=== PATIENT | female | born 1970 | race Caucasian/White ===

== ENCOUNTER → 2017-04-29 | Outpatient (CLI) | payer BC ==
[2017-04-29 10:41] LABS: BILIRUBIN,URINE NEGATIVE (NEGATIVE); KETONES,URINE NEGATIVE (NEGATIVE); LEUKOCYTE ESTERASE ,URINE NEGATIVE (NEGATIVE); NITRITE,URINE NEGATIVE (NEGATIVE); PROTEIN,URINE DIPSTICK NEGATIVE (NEGATIVE); URINE UROBILINOGEN 0.2 mg/dL (0.2 - 1)
[2017-04-29 10:43] LABS: COLOR,URINE YELLOW (YELLOW)
[2017-04-29 10:44] LABS: CLARITY,URINE CLEAR (CLEAR)
[2017-04-29 11:10] LABS: % IRON SATURATION 16 % (15-50); ALANINE AMINOTRANSFERASE 19 IU/L (0-55); ALBUMIN 4.1 g/dL (3.5-5.0); ALBUMIN/GLOBULIN RATIO 1.2 (0.8-2.0); ALKALINE PHOSPHATASE 76 IU/L (40-150); ANION GAP 11.8 mmol/L (8-16); BLOOD UREA NITROGEN 13 mg/dL (7-26); BUN/CREATININE RATIO 16 (6-25); CALCIUM 9.5 mg/dL (8.4-10.2); CARBON DIOXIDE 27 mmol/L (22-29); CHLORIDE 104 mmol/L (98-107); CREATININE, SERUM 0.83 mg/dL (0.57-1.11); EST GLOMERULAR FILTRATION RATE > 60 ML/MIN (60-); GLUCOSE 98 mg/dL (74-118); IRON 64 ug/dL (50-170); LIPASE 27 U/L (8-78); POTASSIUM 4.8 mmol/L (3.5-5.1); SODIUM 138 mmol/L (136-145); TOTAL IRON BINDING CAPACITY 412 ug/dL (261-478); TRANSFERRIN 294 mg/dL (180-382)
[2017-04-29 13:00] LABS: FOLATE 37.1 ng/mL (7.0-15.4)
[2017-05-13 09:09] LABS: CHOL/HDL RATIO 3.9 (3.0-3.6); CHOLESTEROL 226 MD/DL (0-199); HDL CHOLESTEROL 58 MG/DL (40-60); LDL CHOLESTEROL 137 MG/DL (60-130); TRIGLYCERIDES 155 MG/DL (0-149)
== END ==
LOC: LAB 09:38
PROVIDERS: ATTEND Student in an Organized Health Care Education/Training Program
DX: Z13.29 Encounter for screening for other suspected endocrine disorder (principal); E78.2 Mixed hyperlipidemia; Z13.21 Encounter for screening for nutritional disorder; E79.0 Hyperuricemia without signs of inflammatory arthritis and tophaceous disease
CPT/HCPCS: 36415; 80053; 80061; 81003; 82607; 82652; 82746; 83021; 83540; 83690; 83921; 84443; 84466; 84550

== ENCOUNTER → 2017-05-11 | Outpatient (CLI) | payer BC | LOC: MAMMO 14:47 | PROVIDERS: ATTEND Student in an Organized Health Care Education/Training Program | DX: Z12.31 Encounter for screening mammogram for malignant neoplasm of breast (principal) | CPT/HCPCS: 77067 ==

== ENCOUNTER → 2017-06-01 | Outpatient (RCR) | payer BC | LOC: PT 05-25 13:04 | PROVIDERS: ATTEND Student in an Organized Health Care Education/Training Program | DX: M79.1 Myalgia (principal) ==

== ENCOUNTER → 2017-06-13 | Outpatient (CLI) | payer BC | END | disposition home or self-care (01) | LOC: RAD 09:48 | PROVIDERS: ATTEND Student in an Organized Health Care Education/Training Program | DX: R01.1 Cardiac murmur, unspecified (principal); I51.7 Cardiomegaly; I08.1 Rheumatic disorders of both mitral and tricuspid valves | CPT/HCPCS: 93306 ==

== ENCOUNTER 2017-07-01 07:00 | Outpatient (RCR) | payer BC | END 2017-07-02 | LOC: PT 07:00 | PROVIDERS: ATTEND Student in an Organized Health Care Education/Training Program | DX: M79.1 Myalgia (principal); R29.3 Abnormal posture; M62.81 Muscle weakness (generalized) | CPT/HCPCS: 97139 ==

== ENCOUNTER 2017-07-08 11:00 | Outpatient (RCR) | payer BC | END 2017-08-01 | LOC: PT 11:00 | PROVIDERS: ATTEND Student in an Organized Health Care Education/Training Program | DX: M79.1 Myalgia (principal); R29.3 Abnormal posture; M62.81 Muscle weakness (generalized) ==

== ENCOUNTER 2017-07-08 13:36 | Emergency (ER) | payer BC ==
[~2017-07-08] VITALS: Ht 165.1 cm; Wt 78.0 kg
== END 2017-07-08 15:41 | disposition home or self-care (01) ==
LOC: FSED 13:36
DX: S90.32XA Contusion of left foot, initial encounter (principal); W22.8XXA Striking against or struck by other objects, initial encounter; R03.0 Elevated blood-pressure reading, without diagnosis of hypertension
CPT/HCPCS: 99283

== ENCOUNTER → 2017-09-23 | Outpatient (CLI) | payer BC ==
[2017-09-23 10:12] LABS: ALANINE AMINOTRANSFERASE 18 IU/L (0-55); ALBUMIN 3.8 g/dL (3.5-5.0); ALBUMIN/GLOBULIN RATIO 1.2 (0.8-2.0); ALKALINE PHOSPHATASE 70 IU/L (40-150); ANION GAP 12.3 mmol/L (8-16); BLOOD UREA NITROGEN 13 mg/dL (7-26); BUN/CREATININE RATIO 15 (6-25); CALCIUM 9.4 mg/dL (8.4-10.2); CARBON DIOXIDE 26 mmol/L (22-29); CHLORIDE 102 mmol/L (98-107); CHOL/HDL RATIO 4.3 (3.0-3.6); CHOLESTEROL 245 MD/DL (0-199); CREATININE, SERUM 0.84 mg/dL (0.57-1.11); EST GLOMERULAR FILTRATION RATE > 60 ML/MIN (60-); GLUCOSE 99 mg/dL (74-118); HDL CHOLESTEROL 57 MG/DL (40-60); IRON 70 ug/dL (50-170); LDL CHOLESTEROL 158 MG/DL (60-130); POTASSIUM 4.3 mmol/L (3.5-5.1); SODIUM 136 mmol/L (136-145); TRIGLYCERIDES 152 MG/DL (0-149)
== END ==
LOC: LAB 09:24
PROVIDERS: ATTEND Student in an Organized Health Care Education/Training Program
DX: E78.2 Mixed hyperlipidemia (principal); D64.9 Anemia, unspecified
CPT/HCPCS: 36415; 80053; 80061; 83540

== ENCOUNTER → 2018-03-31 | Outpatient (CLI) | payer BC | LOC: LAB 09:35 | PROVIDERS: ATTEND Internal Medicine | DX: M25.541 Pain in joints of right hand (principal) | CPT/HCPCS: 36415; 82550; 82784; 84550; 85651; 86039; 86200; 86431 ==

== ENCOUNTER → 2018-07-03 | Day surgery (SDC) | payer BC ==
[~2018-07-03] MED LIST: ATORVASTATIN CA10 MG PO; BUPIVACAINE HCL 0.5% INJ 30 ML VIAL INJ ONE; FENOFIBRATE145 MG PO; LIDOCAINE 1% W/EPINEPHRINE 20 ML VIAL ONE; LIDOCAINE HCL 1% 30ML-PF VIAL ONE; MELATONIN3 MG PO; MELOXICAM7.5 MG PO; METHYLPREDNISOLONE ACETATE 80 MG/ML VIAL ONE; MULTIVITAMINS1 EAC7 PO; TRINTELLIX PO; VITAMIN D400 UNIT PO
--- OUTSIDE RECORDS SUMMARY | 2018-07-03 12:12 | XMS REPORT ---
Author Author [facility] Address Unknown Phone Unavailable Care Team Providers Care Cleaner Assistant Name Role Phone Torrey AGARWAL Unavailable Unavailable Problems This patient has no known problems. Allergies, Adverse Reactions, Alerts This patient has no known allergies or adverse reactions. Medications This patient has no known medications. Results Test Description Test Time Test Comments Text Results Atomic Results Result Comments MAMMOGRAPHY DIGITAL SCR BILAT [place] [address] Patient Name: HALLE COOMBS MR #: [id number] : 1970 Age/Sex: 46/F Req #: [id number] [facility] Physician: Ordered by: ROSINA AGARWAL M.D. Report #: [id number] Location: MAMMO Room/Bed: Procedure: [id number] MG/MAMMOGRAPHY DIGITAL SCR BILAT Exam Date: 05/11/17 Exam Time: 1450 REPORT STATUS: Signed #[id number] - [id number] #BILATERAL DIGITAL SCREENING MAMMOGRAM WITH CAD: 05/11/2017 CLINICAL: Routine screening. Comparison is made to exam dated: 12/18/2015 mammogram - [facility]. Current study contains 4 films. The tissue of both breasts is heterogeneously dense. This may lower the sensitivity of mammography. Current study was also evaluated with a Computer Aided Detection (CAD) system. No significant masses, calcifications, or other findings are seen in either breast. There has been no significant interval change. IMPRESSION: NEGATIVE There is no mammographic evidence of malignancy. A 1 year screening mammogram is recommended. The patient will be notified by letter of the results. Rashmi reese/allison:05/19/2017 12:29:11 Senior Fire Protection Engineer: Zoë OLIVERA)([place]), [facility] letter sent: Compared to Prior B9 Mammogram BI- RADS: 1 Negative Dictated By: RASHMI JONES DO 1229 Transcribed By: ALLISON on 05/19/17 1229 COPY TO: ROSINA AGARWAL M.D.
--- OUTSIDE RECORDS SUMMARY | 2018-07-03 12:12 | XMS REPORT | Clinical Summary ---
Author Author [facility] Address Unknown Phone Unavailable Care Team Providers Care Numerical Control Drill Press Operator Name Role Phone Annie Plascencia MD PCP Allergies Comments Active Allergy Reactions Severity Noted Date Rash Coenzyme Q10 01/16/2018 Medications End Date Status Medication Sig Dispensed Refills Start Date Active multivitamin with Take 1 tablet 0 minerals tablet by mouth daily. Active CHOLECALCIFEROL, VITAMIN Take 2 0 D3, (VITAMIN D3 ORAL) tablets by mouth daily. Active MELATONIN ORAL Take 1 tablet 0 by mouth daily. Active FERROUS SULFATE, DRIED Take by 0 (IRON, DRIED, ORAL) mouth. 10/13/2018 Active atorvastatin (LIPITOR) 10 Take 1 tablet 30 tablet 11 MG tabletIndications: (10 mg total) 8 Mixed hyperlipidemia by mouth daily. Active TRINTELLIX 10 mg TAKE 1 TABLET 90 tablet 3 tabletIndications: BY MOUTH 8 Anxiety and depression EVERY DAY Active betamethasone valerate Apply 30 g 3 (VALISONE) 0.1 % topically 2 8 creamIndications: Lichen (two) times a sclerosus et atrophicus day. Apply topically from every other day to up to two times a day as needed. Active valACYclovir (VALTREX) TAKE 1 TABLET 60 tablet 1 500 MG tabletIndications: (500 MG 9 Genital herpes simplex, TOTAL) BY unspecified site MOUTH 2 (TWO) TIMES A DAY. Active loratadine (CLARITIN) 10 Take 10 mg by 0 mg tablet mouth daily. Active triamcinolone (KENALOG) Apply 0 0.1 % ointment topically 2 (two) times a day. 05/30/2019 Active meloxicam (MOBIC) 7.5 mg Take 1 tablet 30 tablet 11 tabletIndications: (7.5 mg 9 Polyarthralgia total) by mouth daily. 05/30/2019 Active fenofibrate (TRICOR) 48 Take 1 tablet 30 tablet 11 MG tabletIndications: (48 mg total) 9 Mixed hyperlipidemia by mouth daily. 09/20/2017 Discontinued doxycycline (MONODOX) 100 Take 50 mg by 0 MG capsule mouth daily. 08/01/2017 Discontinued busPIRone (BUSPAR) 7.5 MG TAKE 1 TABLET 60 tablet 1 tabletIndications: (7.5 MG 7 Anxiety TOTAL) BY MOUTH 2 (TWO) TIMES A DAY. 01/16/2018 Discontinued betamethasone valerate Apply 30 g 3 (VALISONE) 0.1 % topically 2 7 creamIndications: Lichen (two) times a sclerosus et atrophicus day. Apply topically from every other day to up to two times a day as needed. 07/27/2017 Discontinued valACYclovir (VALTREX) TAKE 1 TABLET 60 tablet 1 500 MG tabletIndications: (500 MG 8 Genital herpes simplex, TOTAL) BY unspecified site MOUTH 2 (TWO) TIMES A DAY. 08/01/2017 Discontinued vortioxetine 10 mg Take 10 mg by 30 tablet 3 tabletIndications: mouth daily. 8 Anxiety and depression 08/01/2017 Discontinued escitalopram (LEXAPRO) 20 TAKE 1 TABLET 90 tablet 3 MG tablet BY MOUTH 8 EVERY MORNING. 01/16/2018 Discontinued ezetimibe (ZETIA) 10 mg Take 1 tablet 90 tablet 3 tabletIndications: Mixed (10 mg total) 8 hyperlipidemia by mouth daily. 10/03/2017 Discontinued valACYclovir (VALTREX) TAKE 1 TABLET 60 tablet 1 500 MG tabletIndications: (500 MG 8 Genital herpes simplex, TOTAL) BY unspecified site MOUTH 2 (TWO) TIMES A DAY. 09/20/2017 Discontinued busPIRone (BUSPAR) 7.5 MG TAKE 1 TABLET 60 tablet 1 tabletIndications: (7.5 MG 8 Anxiety TOTAL) BY MOUTH 2 (TWO) TIMES A DAY. 12/02/2017 Discontinued vortioxetine 10 mg Take 10 mg by 90 tablet 0 tabletIndications: mouth daily. 8 Anxiety and depression 12/06/2017 Discontinued valACYclovir (VALTREX) TAKE 1 TABLET 60 tablet 1 500 MG tabletIndications: (500 MG 8 Genital herpes simplex, TOTAL) BY unspecified site MOUTH 2 (TWO) TIMES A DAY. 01/08/2018 lisdexamfetamine Take 1 90 capsule 0 (VYVANSE) 30 MG capsule (30 8 capsuleIndications: Adult mg total) by ADHD mouth every morning for 90 days. Max Daily Amount: 30 mg 01/16/2018 Discontinued coenzyme Q10 (COQ-10) 100 Take 1 30 capsule 11 mg capsuleIndications: capsule (100 8 Mixed hyperlipidemia mg total) by mouth daily. 01/16/2018 Discontinued predniSONE (DELTASONE) 20 TAKE 1 TABLET 0 10/25/201 mg tablet BY MOUTH FOR 8 5 DAYS 11/26/2017 Discontinued hydrOXYzine (ATARAX) 25 Take 1 tablet 30 tablet 0 10/28/201 MG tabletIndications: (25 mg total) 8 Rash and nonspecific skin by mouth 3 eruption (three) times a day as needed for itching for up to 30 days. 12/27/2017 hydrOXYzine (ATARAX) 25 TAKE 1 TABLET 30 tablet 0 201 MG tabletIndications: (25 MG TOTAL) 8 Rash and nonspecific skin BY MOUTH 3 eruption (THREE) TIMES A DAY NEEDED FOR ITCHING FOR UP TO 30 DAYS. 12/06/2017 Discontinued valACYclovir (VALTREX) TAKE 1 TABLET 60 tablet 1 500 MG tabletIndications: (500 MG 8 Genital herpes simplex, TOTAL) BY unspecified site MOUTH 2 (TWO) TIMES A DAY. 05/23/2018 Discontinued valACYclovir (VALTREX) TAKE 1 TABLET 60 tablet 1 500 MG tabletIndications: (500 MG 8 Genital herpes simplex, TOTAL) BY unspecified site MOUTH 2 (TWO) TIMES A DAY. 05/23/2018 Discontinued dextroamphetamine-ampheta Take 1 tablet 30 tablet 0 mine (ADDERALL) 10 mg (10 mg total) 8 tabletIndications: ADHD, by mouth adult residual type daily for 30 days. Max Daily Amount: 10 mg 05/23/2018 Discontinued valACYclovir (VALTREX) TAKE 1 TABLET 60 tablet 1 500 MG tabletIndications: (500 MG 8 Genital herpes simplex, TOTAL) BY unspecified site MOUTH 2 (TWO) TIMES A DAY. 04/05/2018 dextroamphetamine-ampheta Take 1 tablet 30 tablet 0 mine (ADDERALL) 10 mg (10 mg total) 8 tabletIndications: Adult by mouth ADHD daily for 30 days. Max Daily Amount: 10 mg 06/22/2018 dextroamphetamine-ampheta Take 1 tablet 30 tablet 0 mine (ADDERALL) 10 mg (10 mg total) 9 tabletIndications: ADHD, by mouth adult residual type daily for 30 days. Max Daily Amount: 10 mg Active Problems Problem Noted Date Lichen sclerosus et atrophicus 01/16/2018 Arthralgia of right hand 05/05/2017 Anxiety and depression 05/05/2017 Myalgia 05/05/2017 Hip sprain 03/10/2016 Hand sprain 03/10/2016 Rosacea 03/03/2016 Insomnia Mixed hyperlipidemia Genital herpes Depression Encounters Care Team Description Date Type Specialty Annie Plascencia MD Polyarthralgia (Primary Dx); Mixed hyperlipidemia; Adult ADHD; History of psoriasis 05/30/2018 Office Visit Family Medicine Annie Plascencia MD Adult ADHD (Primary Dx) 03/06/2018 Orders Only Family Medicine Annie Plascencia MD Genital herpes simplex, unspecified site; ADHD, adult residual type 02/01/2018 Refill Family Medicine Annie Plascencia MD Mixed hyperlipidemia (Primary Dx); Lichen sclerosus et atrophicus; Anxiety and depression; ADHD, adult residual type; Long-term use of high-risk medication 01/16/2018 Office Visit Family Annie Porras MD Genital herpes simplex, unspecified site 12/06/2017 Orders Only Family Annie Porras MD Genital herpes simplex, unspecified site 12/06/2017 Refill Family Medicine Annie Plascencia MD Anxiety and depression 12/02/2017 Refill Internal Medicine Annie Plascencia MD Rash and nonspecific skin eruption 11/26/2017 Refill Family Medicine Annie Plascencia MD Rash and nonspecific skin eruption (Primary Dx) 10/28/2017 Office Visit Family Medicine Monserrat Chappell MA 10/24/2017 Orders Only Family Medicine Annie Plascencia MD Mixed hyperlipidemia (Primary Dx) 10/13/2017 Orders Only Family Medicine Annie Plascencia MD Adult ADHD (Primary Dx) 10/10/2017 Orders Only Family Medicine Annie Plascencia MD 10/06/2017 Telephone Family Medicine Annie Plascencia MD Genital herpes simplex, unspecified site 10/03/2017 Refill Family Medicine Annie Plascencia MD Mixed hyperlipidemia (Primary Dx); Anemia, unspecified type; ADHD, adult residual type; Anxiety and depression 09/20/2017 Office Visit Family Medicine Belem Ohara MA Anxiety; Anxiety and depression 08/01/2017 Refill Internal Medicine Annie Plascencia MD Genital herpes simplex, unspecified site 07/27/2017 Refill Family Medicine after 07/02/2017 Family History Medical History Relation Name Comments Arthritis Father Hypertension Father Heart failure Maternal Grandmother Pancreatic cancer Maternal Grandmother Hyperlipidemia Mother Hypertension Mother Colon cancer Paternal Grandfather Relation Name Status Comments Father Alive Maternal Grandmother Mother Alive Paternal Grandfather Social History Date Tobacco Use Types Packs/Day Years Used Former Smoker 0.5 3 Smokeless Tobacco: Never Used Tobacco Cessation: Counseling Given: Yes Comments: quit 1993 Alcohol Use Drinks/Week oz/Week Comments Yes 1-2 Glasses 0.6 - 1.2 of wine Sex Assigned at Date Recorded Not on file Industry Job Start Date Occupation Not on file Not on file Not on file Travel End Travel History Travel Start No recent travel history available. Last Filed Vital Signs Time Taken Vital Sign Reading 05/30/2018 3:18 PM QUALITY ASSURANCE LEAD Blood Pressure 121/80 05/30/2018 3:18 PM QUALITY ASSURANCE LEAD Pulse 68 05/30/2018 3:18 PM QUALITY ASSURANCE LEAD Temperature 36.8 C (98.2 F) 05/30/2018 3:18 PM QUALITY ASSURANCE LEAD Respiratory Rate 18 05/30/2018 3:18 PM QUALITY ASSURANCE LEAD Oxygen Saturation 99% - Inhaled Oxygen - Concentration 05/30/2018 3:18 PM QUALITY ASSURANCE LEAD Weight 83.9 kg (185 lb) 05/30/2018 3:18 PM QUALITY ASSURANCE LEAD Height 163.8 cm (5' 4.5") 05/30/2018 3:18 PM QUALITY ASSURANCE LEAD Body Mass Index 31.26 Plan of Treatment Care Team Description Date [place] [address] [place], [place] [id number] 09/06/2018 Office Visit Family Medicine Health Maintenance Due Date Last Done Comments INFLUENZA VACCINE 11/02/2018 01/03/2018, 01/03/2017 CERVICAL CANCER SCREENING 05/05/2049 Postponed from 1990 (Not Indicated) Implants Device Identifier Shelf Expiration Date Model / Serial / Lot Implanted Type Area Manufactur er TVTRL / / System Contnc Rtrpbc Gynecare Tvt Urological N/A: N/A GYNECARE Exact - [id number] Implants Implanted: Qty: 1 on 07/27/2016 by or Sets Sergo Espinosa MD Results Not on fileafter 07/02/2017 Insurance Payer Benefit Subscriber ID Type Phone Address Plan / Group BCBS BCBS xxxxxxxxxxxx PPO CHOICE PPO/KARLIE L EMPL PPO (Work) [id number] Advance Directives Patient has advance care planning documents on file. For more information, erasto cornelius contact: Kevin Baptiste [address] [place] [address]
[2018-07-03 14:28] VITALS: BP 150/79
--- NOTE | 2018-07-03 14:52 | NUR ---
Operative Procedure Note Procedure: Right & Left hip corticosteroid Injection with image guidance Pre-Op Dx: Right & Left hip femoroacetabular impingement and labral tear Post-Op Dx: Right & Left hip femoroacetabular impingement and labral tear Anesthetic Type: None Surgeon: Naomy David DO Clinical History: 47year old female with right & left hip due to femoroacetabular impingement and labral tear that has failed physical therapy Procedure Summary: Patient was placed in supine position. A time out was performed and Bilateral hips was prepped and draped. Under sterile conditions a needle was placed intra-articularly with the use of ultrasound. Location of t he needle was confirmed with flouroscopy. (40 mg of Depomedrol with 5 cc of 0.5% Marcaine was injected into the hip. As the needle was withdrawn, 5 cc of 1% lidocaine was injected infiltrating the local tissue. A bandaid was placed over the site. The patient was transferred to recovery under stable condition. Findings: Right & Left hip femoroacetabular impingement and labral tear Specimen: None Complications: No EBL: 0 mL Post-Op Condition: Stable Post-Op Plan: Discharge Home WBAT with follow up in 2 weeks Post-Op Plan: Discharge Home WBAT with follow up in 2 weeks
--- NOTE | 2018-07-03 14:55 | NUR ---
DISCHARGE SUMMARY PRIMARY DIAGNOSIS: Bilateral FELA & Labral Tear PROCEDURE PERFORMED: Bilateral Corticosteroid Injection under Image guidance HOSPITAL COURSE: 47 yo F presented to hospital for bilateral FELA and labral tear. Underwent outpatient procedure without complication. INSTRUCTIONS ON DISCHARGE: Weight bearing status: WBAT DVT Prophylaxis: Frequent ambulation Analgesics: OTC NSAIDS Dressing Management: May removed bandaid tonight Follow up in the office in 2 weeks. MEDICATIONS ON DISCHARGE: No new medications Naomy David DO [facility] [address] [place] [phone]
== END | disposition home or self-care (01) ==
LOC: OR 12:09
PROVIDERS: ATTEND Orthopaedic Surgery
DX: M25.852 Other specified joint disorders, left hip (principal); M25.851 Other specified joint disorders, right hip; S73.101A Unspecified sprain of right hip, initial encounter; S73.102A Unspecified sprain of left hip, initial encounter; E78.5 Hyperlipidemia, unspecified; F41.9 Anxiety disorder, unspecified; F32.9 Major depressive disorder, single episode, unspecified; X58.XXXA Exposure to other specified factors, initial encounter
CPT/HCPCS: 20610; J1040; J2001; 76000

== ENCOUNTER 2018-07-17 09:23 | Emergency (ER) | payer BC ==
[~2018-07-17] VITALS: Ht 165.1 cm; Wt 78.0 kg
[~2018-07-17 09:23] MED LIST changes: -BUPIVACAINE HCL 0.5% INJ 30 ML VIAL INJ ONE; -LIDOCAINE 1% W/EPINEPHRINE 20 ML VIAL ONE; -LIDOCAINE HCL 1% 30ML-PF VIAL ONE; -METHYLPREDNISOLONE ACETATE 80 MG/ML VIAL ONE
--- OUTSIDE RECORDS SUMMARY | 2018-07-17 09:26 | XMS REPORT | Clinical Summary ---
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 Name Role Phone Annie Plascencia MD PCP [...] unspecified site 07/27/2017 Refill Family Medicine after 07/16/2017 Family History Medical History Relation Name Comments [...] Taken Vital Sign Reading 05/30/2018 3:18 PM TRADE SHOW SPECIALIST Blood Pressure 121/80 05/30/2018 3:18 PM TRADE SHOW SPECIALIST Pulse 68 05/30/2018 3:18 PM TRADE SHOW SPECIALIST Temperature 36.8 C (98.2 F) 05/30/2018 3:18 PM TRADE SHOW SPECIALIST Respiratory Rate 18 05/30/2018 3:18 PM TRADE SHOW SPECIALIST Oxygen Saturation 99% - Inhaled Oxygen - Concentration 05/30/2018 3:18 PM TRADE SHOW SPECIALIST Weight 83.9 kg (185 lb) 05/30/2018 3:18 PM TRADE SHOW SPECIALIST Height 163.8 cm (5' 4.5") 05/30/2018 3:18 PM TRADE SHOW SPECIALIST Body Mass Index 31.26 Plan of Treatment Care Team Description Date [place] [address] [place], [place] [phone] 09/06/2018 Office Visit Family Medicine Health Maintenance Due Date Last Done Comments INFLUENZA VACCINE 11/02/2018 01/03/2018, 01/03/2017 CERVICAL CANCER SCREENING 05/05/2049 Postponed from 1990 (Not Indicated) Implants Device Identifier Shelf Expiration Date Model / Serial / Lot Implanted Type Area Manufactur er TVTRL / / System Contnc Rtrpbc Gynecare Tvt Urological N/A: N/A GYNECARE Exact - [id number] Implants Implanted: Qty: 1 on 07/27/2016 by or Sets Sergo Espinosa MD Results Not on fileafter 07/16/2017 Insurance Payer Benefit Subscriber ID Type Phone Address Plan / Group BCBS BCBS xxxxxxxxxxxx PPO CHOICE PPO/KARLIE L EMPL PPO (Work) [phone] Advance Directives Patient has advance care planning documents on file. For more information, erasto cornelius contact: Kevin Baptiste [address] [place] [address]
[2018-07-17] MEDS ORDERED: LIDOCAINE HCL 1% LOCAL INJ 20 ML VIAL INJ ONE (11:15)
[2018-07-17] MEDS ORDERED: POVIDONE IODINE 10% 120 ML BTL EXT ONE (11:15)
[2018-07-17] MEDS ORDERED: BACITRACIN ZINC 0.9GM TP ONE (11:15)
[2018-07-17] MEDS ORDERED: SODIUM CHLORIDE 0.9% IRRIG 3,000 ML BAG IR ONE (11:15)
== END 2018-07-17 10:35 | disposition home or self-care (01) ==
LOC: FSED 09:23
DX: S61.011A Laceration without foreign body of right thumb without damage to nail, initial encounter (principal); S61.210A Laceration without foreign body of right index finger without damage to nail, initial encounter; W26.0XXA Contact with knife, initial encounter; Y92.008 Other place in unspecified non-institutional (private) residence as the place of occurrence of the external cause
CPT/HCPCS: 12001; 99284; J2001

== ENCOUNTER 2018-07-26 14:14 | Emergency (ER) | payer BC ==
[~2018-07-26] VITALS: Ht 165.1 cm; Wt 81.6 kg
--- OUTSIDE RECORDS SUMMARY | 2018-07-26 14:17 | XMS REPORT | Clinical Summary ---
Author Author [facility] Address Unknown Phone Unavailable Care Team Providers Care Plate Colorer Name Role Phone Annie Plascencia MD PCP [...] Take by 0 (IRON, DRIED, ORAL) mouth. Active TRINTELLIX 10 mg TAKE 1 TABLET [...] total) 9 Mixed hyperlipidemia by mouth daily. Active atorvastatin (LIPITOR) 10 TAKE 1 TABLET 30 tablet 1 MG tabletIndications: BY MOUTH 9 Mixed hyperlipidemia EVERY DAY 09/20/2017 Discontinued doxycycline (MONODOX) 100 Take 50 [...] 90 days. Max Daily Amount: 30 mg 07/20/2018 Discontinued atorvastatin (LIPITOR) 10 Take 1 tablet 30 tablet 11 MG tabletIndications: (10 mg total) 8 Mixed hyperlipidemia by mouth daily. 01/16/2018 Discontinued coenzyme Q10 (COQ-10) 100 Take [...] 25 TAKE 1 TABLET 30 tablet 0 11/27/201 MG tabletIndications: (25 MG TOTAL) 8 Rash [...] Description Date Type Specialty Annie Plascencia MD Mixed hyperlipidemia 07/20/2018 Refill Family Annie Porras MD Polyarthralgia (Primary Dx); Mixed hyperlipidemia; Adult ADHD; History of psoriasis 05/30/2018 Office Visit Family Annie Porras MD Adult ADHD (Primary Dx) 03/06/2018 Orders Only Family Annie Porras MD Genital herpes simplex, unspecified site; ADHD, adult residual type 02/01/2018 Refill Annie Dean MD Mixed hyperlipidemia (Primary Dx); Lichen sclerosus et atrophicus; Anxiety and depression; ADHD, adult residual type; Long-term use of high-risk medication 01/16/2018 Office Visit Annie Dean MD Genital herpes simplex, unspecified site 12/06/2017 [...] unspecified site 07/27/2017 Refill Family Medicine after 07/25/2017 Family History Medical History Relation Name Comments [...] Taken Vital Sign Reading 05/30/2018 3:18 PM REFINISHER Blood Pressure 121/80 05/30/2018 3:18 PM REFINISHER Pulse 68 05/30/2018 3:18 PM REFINISHER Temperature 36.8 C (98.2 F) 05/30/2018 3:18 PM REFINISHER Respiratory Rate 18 05/30/2018 3:18 PM REFINISHER Oxygen Saturation 99% - Inhaled Oxygen - Concentration 05/30/2018 3:18 PM REFINISHER Weight 83.9 kg (185 lb) 05/30/2018 3:18 PM REFINISHER Height 163.8 cm (5' 4.5") 05/30/2018 3:18 PM REFINISHER Body Mass Index 31.26 Plan of Treatment Care Team Description Date [place] [address] [place], [place] [phone] 09/06/2018 Office Visit Family Medicine Health Maintenance Due Date Last Done Comments INFLUENZA VACCINE 11/02/2018 01/03/2018, 01/03/2017 CERVICAL CANCER SCREENING 05/05/2049 Postponed from 1990 (Not Indicated) Implants Device Identifier Shelf Expiration Date Model / Serial / Lot Implanted Type Area Manufactur er TVTRL / / System Contnc Rtrpbc Gynecare Tvt Urological N/A: N/A GYNECARE Exact - [id number] Implants Implanted: Qty: 1 on 07/27/2016 by or Sergo Manuel MD Results Not on fileafter 07/25/2017 Insurance Payer Benefit Subscriber ID Type Phone Address Plan / Group BCBS BCBS xxxxxxxxxxxx PPO CHOICE PPO/KARLIE BOWEN PPO (Work) [id number] Advance Directives Patient has advance care planning documents on file. For more information, erasto cornelius contact: Kevin Baptiste [address] [place] [address]
== END 2018-07-26 14:43 | disposition home or self-care (01) ==
LOC: FSED 14:14
DX: Z48.02 Encounter for removal of sutures (principal)
CPT/HCPCS: 99282

== ENCOUNTER 2018-07-31 13:00 | Outpatient (RCR) | payer BC | END 2018-08-01 | LOC: PT 13:00 | PROVIDERS: ATTEND Orthopaedic Surgery | DX: S73.192D Other sprain of left hip, subsequent encounter (principal); S73.191D Other sprain of right hip, subsequent encounter; M62.81 Muscle weakness (generalized); M25.652 Stiffness of left hip, not elsewhere classified; M25.651 Stiffness of right hip, not elsewhere classified ==

== ENCOUNTER 2018-08-25 11:00 | Outpatient (RCR) | payer BC | END 2018-09-01 | LOC: PT 11:00 | PROVIDERS: ATTEND Orthopaedic Surgery | DX: S73.192A Other sprain of left hip, initial encounter (principal); S73.191A Other sprain of right hip, initial encounter | CPT/HCPCS: 97139 ==

== ENCOUNTER → 2018-09-12 | Outpatient (CLI) | payer BC ==
[2018-09-12 09:42] LABS: BASOPHILS % 0.6 % (0.0-1.0); EOSINOPHILS # (AUTO) 0.1 (0.0-0.4); EOSINOPHILS % 1.1 % (0.0-6.0); HEMATOCRIT 36.9 % (34.2-44.1); HEMOGLOBIN 12.5 g/dL (12.0-16.0); LYMPHOCYTES # (AUTO) 2.1 (1.0-3.2); LYMPHOCYTES % 38.4 % (18.0-39.1); MEAN CORPUSCULAR HEMOGLOBIN 32.1 pg (28-32); MEAN CORPUSCULAR HGB CONC 33.9 g/dL (31-35); MEAN CORPUSCULAR VOLUME 94.6 fL (81-99); MONOCYTES # (AUTO) 0.4 (0.2-0.8); MONOCYTES % 8.2 % (4.4-11.3); NEUTROPHILS # (AUTO) 2.8 (2.1-6.9); NEUTROPHILS % 51.5 % (38.7-80.0); PLATELET COUNT 324 x10e3/uL (140-360); RED CELL DISTRIBUTION WIDTH 12.6 % (11.7-14.4)
[2018-09-12 10:00] LABS: % IRON SATURATION 20 % (15-50); ALANINE AMINOTRANSFERASE 44 IU/L (0-55); ALBUMIN/GLOBULIN RATIO 1.4 (0.8-2.0); ALKALINE PHOSPHATASE 74 IU/L (40-150); ANION GAP 10.1 mmol/L (8-16); BLOOD UREA NITROGEN 16 mg/dL (7-26); BUN/CREATININE RATIO 18 (6-25); CALCIUM 9.4 mg/dL (8.4-10.2); CARBON DIOXIDE 26 mmol/L (22-29); CHLORIDE 103 mmol/L (98-107); CHOL/HDL RATIO 3.8 (3.0-3.6); CHOLESTEROL 214 MD/DL (0-199); CREATININE, SERUM 0.88 mg/dL (0.57-1.11); EST GLOMERULAR FILTRATION RATE > 60 ML/MIN (60-); GLUCOSE 90 mg/dL (74-118); HDL CHOLESTEROL 57 MG/DL (40-60); IRON 70 ug/dL (50-170); LDL CHOLESTEROL 132 MG/DL (60-130); POTASSIUM 4.1 mmol/L (3.5-5.1); SODIUM 135 mmol/L (136-145); TOTAL IRON BINDING CAPACITY 356 ug/dL (261-478); TRANSFERRIN 254 mg/dL (180-382); TRIGLYCERIDES 126 MG/DL (0-149)
[2018-09-12 10:19] LABS: THYROID STIMULATING HORMONE 1.482 uIU/mL (0.350-4.940)
[2018-09-12 13:09] LABS: ERYTHROCYTE SEDIMENTATION RATE 11 mm/hr (0-20)
== END ==
LOC: LAB 09:02
PROVIDERS: ATTEND Student in an Organized Health Care Education/Training Program
DX: Z13.29 Encounter for screening for other suspected endocrine disorder (principal); E78.2 Mixed hyperlipidemia; M79.10 Myalgia, unspecified site; E79.0 Hyperuricemia without signs of inflammatory arthritis and tophaceous disease; E61.1 Iron deficiency
CPT/HCPCS: 36415; 77067; 80053; 80061; 83036; 83540; 84443; 84466; 84550; 85025; 85651; 86039; 86140; 86431

== ENCOUNTER 2018-09-13 13:00 | Outpatient (RCR) | payer BC | END 2018-10-01 | LOC: PT 13:00 | PROVIDERS: ATTEND Orthopaedic Surgery | DX: S73.192D Other sprain of left hip, subsequent encounter (principal); S73.191D Other sprain of right hip, subsequent encounter; M62.81 Muscle weakness (generalized); M25.652 Stiffness of left hip, not elsewhere classified; M25.651 Stiffness of right hip, not elsewhere classified ==

== ENCOUNTER → 2018-09-15 | Outpatient (CLI) | payer BC ==
[~2018-09-15] MED LIST changes: +GADOBENATE DIMEGLUMINE 1 ML IV ONE; +IOPAMIDOL 300 MG/ML 15ML VIAL IT ONE; +LIDOCAINE HCL 1% LOCAL INJ 20 ML VIAL ONE
== END ==
LOC: DX 11:16
PROVIDERS: ATTEND Orthopaedic Surgery
DX: M84.459A Pathological fracture, hip, unspecified, initial encounter for fracture (principal)
CPT/HCPCS: 27093; A9577; J2001; Q9967

== ENCOUNTER → 2019-09-14 | Outpatient (CLI) | payer OTHER ==
[~2019-09-14] MED LIST changes: -GADOBENATE DIMEGLUMINE 1 ML IV ONE; -IOPAMIDOL 300 MG/ML 15ML VIAL IT ONE; -LIDOCAINE HCL 1% LOCAL INJ 20 ML VIAL ONE
== END ==
LOC: MAMMO 13:32
PROVIDERS: ATTEND Student in an Organized Health Care Education/Training Program
DX: Z12.31 Encounter for screening mammogram for malignant neoplasm of breast (principal)
CPT/HCPCS: 77067

== ENCOUNTER → 2020-01-03 | Outpatient (CLI) | payer OTHER ==
[~2020-01-03] MED LIST changes: +IOPAMIDOL 370 MG/ML 200 ML INFUS..BTL INJ ONE; +METOPROLOL TARTRATE INJ 1 MG/ML VIAL ONE; +NITROGLYCERIN 0.4 MG SUBL ONE; +SODIUM CHLORIDE 0.9% 100 ML ONE
--- NOTE | 2020-01-04 13:45 | NUR ---
Follow up call made to pt reguarding CTA that was performed yesterday. Pt states she had a headache all day yesterday, she took tylenol for it. st stated When she woke up today she feels like her normal self
--- NOTE | 2020-01-05 09:55 | Diagnostic Imaging Report ---
EXAM: CALCIUM SCORE AND CORONARY CTA INDICATION: ^[id number] ^[id number] ^CHEST PAIN COMPARISON: None. TECHNIQUE: Multi-detector CT technology was employed (64 MDCT [place]). Minimal slice thickness with retrospective gating was performed following the intravenous administration of contrast material. The patient was premedicated with 2.5 mg i.v. metoprolol and 0.4 mg sublingual nitroglycerin for heart rate control and coronary dilation, respectively. IV CONTRAST: 100 mL of Isovue-370 ORAL CONTRAST: None COMPLICATIONS: None RADIATION DOSE: Total DLP: 1451.2 mGy*cm Estimated effective dose: (DLP x 0.015 x size factor) mSv CTDIvol has been reviewed. It is below the limits set by the Radiation Protocol Committee (RPC). For optimization of anatomic evaluation, multiplanar reconstruction, maximum intensity projections, and advanced 3-D off-line postprocessing were performed on a dedicated stand-alone workstation under the direct supervision of the interpreting physician. QUALITY: Excellent FINDINGS: CALCIUM SCORE: The observed Agatston Calcium Score of 0 is at percentile 50% for subjects of the same age and gender who are free of clinical cardiovascular disease and treated diabetes. The Agatston score for each vessel is as follows: LM: 0 LAD: 0 LCx: 0 RCA: 0 DISTRIBUTION OF THE CALCIFIED PLAQUES: No identifiable calcified plaques in the coronary arteries. CORONARY ANATOMY: There is normal origin of the coronary arteries. Left Main Coronary Artery: The left main is normal sized vessel that bifurcates into the LAD and circumflex. There is no evidence of atherosclerotic changes or stenotic disease. Left Anterior Descending Coronary Artery: The LAD is a normal size vessel that wraps around the apex. It gives rise to 2 acute diagonal branches. There is no evidence of atherosclerotic changes or stenotic disease. Left Circumflex Coronary Artery: The LCX is a normal size vessel, which is non-dominant. It gives rise to 1 obtuse marginal branches. There is no evidence of atherosclerotic changes or stenotic disease. Right Coronary Artery: The RCA is a normal size vessel, which is dominant. It gives rise to a conus branch, AV azra branch, and 3 acute marginal branches. In its distal segment it bifurcates into the PDA and PV branch. There is no evidence of atherosclerotic changes or stenotic disease. CARDIAC MORPHOLOGY AND FUNCTION: The right and left atria and ventricles are morphologically normal. There is normal resting global left ventricular systolic function. LVEF: 68%, LV end diastolic volume: 130.7 cc LV end systolic volume: 41.7 cc LV stroke volume: 89 cc LIMITED CHEST: Limited views of the visualized chest show no abnormality within chest wall and mediastinum. No mediastinal lymphadenopathy. The visualized lungs are clear. The visualized portions of the ascending and descending thoracic aorta are of normal size. LIMITED ABDOMEN: Limited images of the upper abdomen reveal no abnormalities of the visualized organs. BONES: No acute osseous abnormalities. IMPRESSION: 1. Total Agatston Calcium Score: 0 that corresponds to percentile 50%, representing no identifiable calcified plaques in the coronary arteries. 2. Normal coronary anatomy without evidence of atherosclerotic changes or stenotic disease. CAD-CHRISTOPHER: 0 Reference: J Cardiovasc Comput Tomogr. Oct-Nov 2015;10(4):269-81. Signed by: Dr. Tiara Ash M.D. on 01/05/2020 9:51 AM
== END ==
LOC: CT 07:42
PROVIDERS: ATTEND Internal Medicine Cardiovascular Disease
DX: R07.9 Chest pain, unspecified (principal)
CPT/HCPCS: 75574; J7050; Q9967

== ENCOUNTER → 2020-12-22 | Outpatient (CLI) | payer OTHER ==
[~2020-12-22] MED LIST changes: -IOPAMIDOL 370 MG/ML 200 ML INFUS..BTL INJ ONE; -METOPROLOL TARTRATE INJ 1 MG/ML VIAL ONE; -NITROGLYCERIN 0.4 MG SUBL ONE; -SODIUM CHLORIDE 0.9% 100 ML ONE
== END ==
LOC: MAMMO 10:48
PROVIDERS: ATTEND Student in an Organized Health Care Education/Training Program
DX: Z12.31 Encounter for screening mammogram for malignant neoplasm of breast (principal)
CPT/HCPCS: 77067

== ENCOUNTER → 2021-12-25 | Outpatient (CLI) | payer BC | LOC: MAMMO 09:22 | PROVIDERS: ATTEND Student in an Organized Health Care Education/Training Program | DX: Z12.31 Encounter for screening mammogram for malignant neoplasm of breast (principal) | CPT/HCPCS: 77067 ==

== ENCOUNTER → 2022-02-04 | Outpatient (CLI) | payer BC | LOC: MAMMO 13:13 | PROVIDERS: ATTEND Student in an Organized Health Care Education/Training Program | DX: N63.20 Unspecified lump in the left breast, unspecified quadrant (principal) ==